=== PATIENT | male | born 1945 | race Caucasian/White ===

== ENCOUNTER → 2016-10-21 | Outpatient (CLI) | payer MEDICARE, OTHER ==
--- NOTE | 2016-10-21 13:38 | RADIOLOGY REPORT (SQ) ---
EXAM DESCRIPTION: CHEST PA/LATERAL COMPLETED DATE/TIME: 10/21/2016 11:50 am REASON FOR STUDY: SHORTNESS OF BREATH COMPARISON: None. EXAM PARAMETERS: NUMBER OF VIEWS: two views TECHNIQUE: Digital Frontal and Lateral radiographic views of the chest acquired. RADIATION DOSE: NA LIMITATIONS: none FINDINGS: LUNGS AND PLEURA: No opacities, masses or pneumothorax. No pleural effusion. MEDIASTINUM AND HILAR STRUCTURES: No masses or contour abnormalities. HEART AND VASCULAR STRUCTURES: Mild cardiomegaly. No evidence for failure. BONES: Old healed right upper lateral rib fractures. Old healed left lower lateral rib fractures. HARDWARE: Old lower cervical fusion hardware. OTHER: No other significant finding. IMPRESSION: Mild cardiomegaly. No acute findings. TECHNICAL DOCUMENTATION: JOB ID: [id number] [employer]- All Rights Reserved
== END ==
LOC: OD 11:33
PROVIDERS: ATTEND Physician Assistant
DX: R06.02 Shortness of breath (principal); I51.7 Cardiomegaly
CPT/HCPCS: 71020

== ENCOUNTER 2016-12-05 10:41 | Emergency (ER) | payer OTHER, MEDICARE ==
[2016-12-05] MEDS ORDERED: CEFTRIAXONE INJ 1000 MG VIAL IM ONE (11:44)
[2016-12-05] MEDS ORDERED: LIDOCAINE 1% INJ-PF (10 MG/ML) 30 ML SDV INJ ONE (11:44)
[2016-12-05] MEDS ORDERED: SULFAMETHOXAZOLE/TRIMETHOPRIM 800-160 MG TABLET PO ONE (11:44)
--- NOTE | 2016-12-05 11:44 | ER Document Report ---
ED Skin Rash/Insect Bite/Abscs - General Mode of Arrival: Ambulatory Information source: Patient TRAVEL OUTSIDE OF THE [place] IN LAST 30 DAYS: No - HPI Patient complains to provider of: Skin rash/lesion, Tender/swollen area. No: Insect bite Onset: Other <BUSHRA MCBRIDE - Last Filed: 12/05/16 12:20> <JAMIRLOANPRAVEEN - Last Filed: 12/05/16 17:01> - General Chief Complaint: Facial Swelling Stated Complaint: FACIAL SWELLING Time Seen by Provider: 12/05/16 11:27 Notes: 71 year old male with history of squamous cell carcinoma presents to the ED complaining of right sided facial edema that started 2 days ago and has progressively spread down to his left jaw line, across to his left face, and to his forehead. Patient reports that this started with a burning sensation to his left nostril while working outdoors and quickly developed a fever (101.5F) and edema to his left face shortly after. Patient saw his primary care provider at [facility] yesterday morning and was given IM antibiotics. Patient developed another fever of 102F last night and noticed that the edema had spread to the right side of his face. Patient denies any shortness of breath, trouble swallowing, facial drainage, or teeth pain. Patient was told to come to the ED after contacting PCP earlier today. Patient denies any insect bites. (BUSHRA MCBRIDE) - Related Data Allergies/Adverse Reactions: No Known Allergies Allergy (Verified 12/05/16 11:48) Home Medications: Current Home Medications Amlodipine Besylate 10 mg PO DAILY 12/05/16 [History] Aspirin 325 mg PO DAILY 12/05/16 [History] Hydrochlorothiazide 25 mg PO DAILY 12/05/16 [History] Lisinopril 40 mg PO DAILY 12/05/16 [History] Nitroglycerin [Nitrostat 0.4 mg (1/150 Gr) Tabs 25/Bottle] 1 tab SL Q5MP PRN 02/09 [History] Omeprazole 20 mg PO DAILY 12/05/16 [History] Prazosin HCl 2 mg PO TID 12/05/16 [History] Simvastatin 40 mg PO QHS 12/05/16 [History] Past Medical History - General Information source: Patient - Social History Smoking Status: Former Smoker Chew tobacco use (# tins/day): No Frequency of alcohol use: None Drug Abuse: None Family History: Reviewed & Not Pertinent Patient has suicidal ideation: No - Past Medical History Cardiac Medical History: Reports: Hx Hypertension Renal/ Medical History: Reports: Hx Benign Prostatic Hyperplasia. Denies: Hx Peritoneal Dialysis Malignancy Medical History: Reports Hx Skin Cancer - squamous cell carcinoma GI Medical History: Reports: Hx Gastroesophageal Reflux Disease Past Surgical History: Reports: Hx Bowel Surgery - colon resection <BUSHRA MCBRIDE - Last Filed: 12/05/16 12:20> Review of Systems - Review of Systems Constitutional: See HPI, Fever - 101.5F and 102F EENT: No symptoms reported. denies: Difficulty swallowing, Mouth pain, Dental problem Cardiovascular: No symptoms reported Respiratory: No symptoms reported. denies: Short of breath Gastrointestinal: No symptoms reported Genitourinary: No symptoms reported Male Genitourinary: No symptoms reported Musculoskeletal: No symptoms reported Skin: See HPI, Change in color - bilateral facial erythema, Other - bilateral facial edema Hematologic/Lymphatic: No symptoms reported Neurological/Psychological: See HPI, Sensory change - burning to the left nostril -: Yes All other systems reviewed and negative <BUSHRA MCBRIDE - Last Filed: 12/05/16 12:20> Physical Exam - General General appearance: Alert In distress: None - HEENT Head: No: Normocephalic Eyes: Normal Extraocular movements intact: Yes Pupils: PERRL Nasal: Swelling - left nasal turbinate with small amount of rhinorrhea. No: Normal Mouth/Lips: Other - see skin exam below. No: Caries - Respiratory Respiratory status: No respiratory distress Breath sounds: Normal - Cardiovascular Rhythm: Regular Heart sounds: Normal auscultation Murmur: No Friction rub: No Gallop: None auscultated - Abdominal Inspection: Normal - Extremities General upper extremity: Normal inspection, Normal ROM General lower extremity: Normal inspection, Normal ROM - Neurological Neuro grossly intact: Yes Cognition: Normal Orientation: AAOx4 Damon Coma Scale Eye Opening: Spontaneous Damon Coma Scale Verbal: Oriented Damon Coma Scale Motor: Obeys Commands Damon Coma Scale Total: 15 Speech: Normal - Psychological Associated symptoms: Normal affect, Normal mood - Skin Skin Temperature: Warm Skin Moisture: Dry Skin Color: Other - Mild swelling with extensive erythema of the left face and spreads to the left eyebrow and down to the left jaw line. Swelling and erythema crosses the nasal filtrum, to the upper lip, and 2 cm past the nasolabial fold. Erythema additionally extends 2 cm above the eyebrows. Swelling and erythema does not extend to the left auditory external canal. No discharge or airway compromise. No evidence of abscess. <BUSHRA MCBRIDE - Last Filed: 12/05/16 12:20> - Vital signs Vitals: Temp Pulse Resp BP Pulse Ox 98.5 F 70 16 141/61 H 97 12/05/16 10:46 12/05/16 10:46 12/05/16 10:46 12/05/16 10:46 12/05/16 10:46 Course - Laboratory Result Diagrams: 12/05/16 12:01 12/05/16 12:01 <BUSHRA MCBRIDE - Last Filed: 12/05/16 12:20> - Laboratory Result Diagrams: 12/05/16 12:01 12/05/16 12:01 <PRAVEEN PARR - Last Filed: 12/05/16 17:01> - Re-evaluation Re-evalutation: 12/05/16 12:08 No respiratory compromise, no evidence of meningitis, no abscess, no airway compromise. Discussed with patient admission for IV antibiotics versus single shot of Rocephin IM and discharged home on Bactrim and Keflex, patient lives in [facility], does not have a long drive to the hospital, is reliable, has a primary care physician and has a who can drive him to the hospital as well. Patient and are agreeable with trial of outpatient antibiotics and return should he continue having fevers after 48 hours, should the erythema spread at any point, should he develop any difficulty breathing or any new or concerning symptoms. 12/05/16 17:01 No leukocytosis, has not had oral antibiotics, was supposed to receive Augmentin yesterday however did not. Reasonable to trial outpatient antibiotics. Patient and agreeable to this. (PRAVEEN PARR) - Vital Signs Vital signs: Temp Pulse Resp BP Pulse Ox 98.4 F 56 L 16 127/81 H 96 12/05/16 12:55 12/05/16 12:55 12/05/16 12:55 12/05/16 12:55 12/05/16 12:55 - Laboratory Laboratory results interpreted by me: 12/05/16 12/05/16 12:01 12:01 Hgb 13.3 L Hct 37.7 L Seg Neutrophils % 79.5 H Lymphocytes % 9.9 L Potassium 3.1 L Carbon Dioxide 33 H BUN 26 H Glucose 127 H Discharge <BUSHRA MCBRIDE - Last Filed: 12/05/16 12:20> <PRAVEEN PARR - Last Filed: 12/05/16 17:01> - Discharge Clinical Impression: Facial cellulitis Hypertension Qualifiers: Hypertension type: essential hypertension Qualified Code(s): I10 - Essential ( primary) hypertension Condition: Stable Disposition: HOME, SELF-CARE Additional Instructions: Your fever should resolve within the next 48 hours. If they continue longer than that please return to your primary care physician for reevaluation or come to the emergency department. Should the redness on your face continue to spread or you develop any difficulty breathing or swallowing return to the emergency department immediately. You may need to be admitted for IV antibiotics. Please orange picker your antibiotics today. Take them as directed until they are gone, do not skip any doses. Prescriptions: Cephalexin Monohydrate [Keflex 500 mg Capsule] 1,000 mg PO BID #28 capsule Sulfamethoxazole/Trimethoprim [Bactrim Ds Tablet] 1 each PO BID #14 tablet Referrals: LOGAN GARCIA PA-C [Primary Care Provider] - Follow up in 3-5 days Scribe Attestation: 12/05/16 17:01 I personally performed the services described in the documentation, reviewed and edited the documentation which was dictated to the scribe in my presence, and it accurately records my words and actions. (PRAVEEN PRAR) Scribe Documentation - Scribe Written by Srikanth:: Srikanth Lim, 12/05/2016 1310 acting as scribe for :: Elsy <BUSHRA MCBRIDE - Last Filed: 12/05/16 12:20>
[2016-12-05 12:18] LABS: ABSOLUTE EOSINOPHILS # (AUTO) 0.2 10^3/uL (0.0-0.6); ABSOLUTE LYMPHOCYTES (AUTO) 0.8 10^3/uL (0.5-4.7); ABSOLUTE MONOCYTES (AUTO) 0.7 10^3/uL (0.1-1.4); ABSOLUTE NEUT (AUTO) 6.7 10^3/uL (1.7-8.2); BASOPHILS % (AUTO) 0.2 % (0-2); EOSINOPHILS % (AUTO) 2.5 % (0-6); HEMATOCRIT 37.7 % (37.9-51.0); HEMOGLOBIN 13.3 g/dL (13.5-17.0); HGB HCT DIFFERENCE 2.2; LYMPHOCYTES % (AUTO) 9.9 % (13-45); MEAN CORPUSCULAR HEMOGLOBIN 30.4 pg (27.0-33.4); MEAN CORPUSCULAR HGB CONC 35.3 g/dL (32.0-36.0); MEAN CORPUSCULAR VOLUME 86 fl (80-97); MONOCYTES % (AUTO) 7.9 % (3-13); RED BLOOD COUNT 4.38 10^6/uL (4.35-5.55); RED CELL DISTRIBUTION WIDTH 13.2 % (11.5-14.0); SEGMENTED NEUTROPHILS % (AUTO) 79.5 % (42-78); WHITE BLOOD COUNT 8.4 10^3/uL (4.0-10.5)
[2016-12-05 12:43] LABS: ANION GAP 12 (5-19); BLOOD UREA NITROGEN 26 mg/dL (7-20); CALCIUM 9.4 mg/dL (8.4-10.2); CARBON DIOXIDE 33 mmol/L (22-30); CHLORIDE 99 mmol/L (98-107); CREATININE RESULT 0.86 mg/dL (0.52-1.25); GLUCOSE 127 mg/dL (75-110); POTASSIUM 3.1 mmol/L (3.6-5.0); SODIUM 143.8 mmol/L (137-145)
[2016-12-05 13:05] VITALS: BP 127/81
== END 2016-12-05 12:54 | disposition home or self-care (01) ==
LOC: ER 10:41
DX: L03.211 Cellulitis of face (principal); I10 Essential (primary) hypertension; J34.89 Other specified disorders of nose and nasal sinuses; R50.9 Fever, unspecified; Z85.3 Personal history of malignant neoplasm of breast; Z87.891 Personal history of nicotine dependence
CPT/HCPCS: 99283; 96372; 36415; 85025; 80048; J3490; J0696

== ENCOUNTER → 2019-04-23 | Outpatient (CLI) | payer OTHER, MEDICARE | LOC: OD 08:53 | PROVIDERS: ATTEND Otolaryngology | DX: J30.9 Allergic rhinitis, unspecified (principal) | CPT/HCPCS: 36415; 82785; 86003 ==